=== PATIENT | female | born 1970 | race African-American/Black ===

== ENCOUNTER 2020-04-12 17:38 | Emergency (ER) | payer OTHER, SELFPAY ==
[2020-04-12 17:48] VITALS: BP 157/100; PULSE 89; RESP 18; TEMP 36.7; O2SAT 100
--- NOTE | 2020-04-12 18:05 | PC.NURSE ---
inpatient auditor consulted with poison control.
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
== END 2020-04-12 18:40 | disposition home or self-care (01) ==
PROVIDERS: Emergency Provider Nurse Practitioner; PCP Family Medicine
DX: T21.51XA Corrosion of first degree of chest wall, initial encounter (principal); J45.909 Unspecified asthma, uncomplicated
CPT/HCPCS: 16000; 99213; A9270; G0463

== ENCOUNTER 2020-07-30 11:28 | Emergency (ER) | payer OTHER, SELFPAY ==
[2020-07-30 11:49] VITALS: BP 153/90; PULSE 82; RESP 16; TEMP 36.4; O2SAT 100
--- NOTE | 2020-07-30 11:58 | ED.GENADULT ---
HPI - General Adult General Chief complaint: Unspecified Stated complaint: elevated hpb/headache Time Seen by Provider: 07/30/20 11:58 Source: patient and RN notes reviewed Mode of arrival: ambulatory Limitations: no limitations History of Present Illness HPI narrative: 49-year-old female presents with multiple concerns. Patient she reports yesterday at work she felt a headache and saw black spots and checked her blood pressure, her blood pressure was 190/120. Reports she rested and felt better. Reports she still has a minor headache today. 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 She reports taking 2 extra strength Tylenol for hip pain and headache with no relief. She denies any head trauma, thunderclap headache, slurred speech, difficulty swallowing, weakness in extremity. She denies hip injury or trauma. She denies any previous diagnosis of hypertension, reports she tried to get an appointment with her primary care provider but could not get an appointment until September. She denies chest pain, nausea, vomiting. MD complaint: High blood pressure Related Data Home Medications Medication Instructions Recorded Confirmed No Home Medications 07/30/20 07/30/20 Allergies Allergy/AdvReac Type Severity Reaction Status Date / Time No Known Allergies Allergy Unverified 07/30/20 11:31 Review of Systems Review of Systems: Narrative: CONSTITUTIONAL: Denies malaise, chills, sweats, or fever. EYES: Denies visual changes CARDIOVASCULAR: Denies chest pain, palpitations, or edema. RESPIRATORY: Denies cough or dyspnea. GASTROINTESTINAL: Denies abdominal pain, nausea, vomiting SKIN: Denies bruising, redness MUSCULOSKELETAL: Reports left hip pain NEUROLOGIC: Denies numbness, weakness. Reports mild headache. All systems reviewed & are unremarkable except as noted in HPI and below PMFSH Past Medical History Medical History (Updated 07/30/20 @ 12:06 by Ines Velasquez NP) Asthma Chronic bronchitis Comments At time of signature, agree with nursing past medical, surgical, social and family history. There is no relevant family history pertinent to the presenting complaint Exam Narrative: Exam Narrative: GENERAL: Well-appearing, well-nourished, and in no acute distress. HEAD: Normocephalic, atraumatic. EYES: PERRLA, conjunctivae clear, and EOMI. No nystagmus. ENT: Mucous membranes moist. NECK: Supple CHEST: No respiratory distress. Clear to auscultation. No bony deformities, no asymmetry. Speaks in full sentences. HEART: Regular rate and rhythm. No murmur heard. Normal peripheral pulses. EXTREMITIES: Normal range of motion. No edema. Normal strength and sensation. SKIN: Warm, dry, no rash. NEURO: Alert and oriented x3. No focal deficits. PSYCH: Normal mood and affect Course Course Emergency Course: Patient is aware of diagnosis, understands and agrees to treatment plan. Anticipatory guidance given. Patient agrees to follow-up as directed and is aware of reasons to seek care at the emergency department. Portions of this record may have been created with voice recognition software Vital Signs Vital signs: Vital Signs Temperature 97.6 F 07/30/20 11:49 Pulse Rate 82 07/30/20 11:49 Respiratory Rate 16 07/30/20 11:49 Blood Pressure 153/90 H 07/30/20 11:49 Pulse Oximetry 100 07/30/20 11:49 Temperature 97.6 F 07/30/20 11:49 Pulse Rate 82 07/30/20 11:49 Respiratory Rate 16 07/30/20 11:49 Blood Pressure 153/90 H 07/30/20 11:49 Pulse Oximetry 100 07/30/20 11:49 Reviewed. Patient has been instructed to follow up with her primary care provider within the next week regarding her elevated blood pressure today. Medical Decision Making Vital Signs Vital Signs: Vital Signs Temperature 97.6 F 07/30/20 11:49 Pulse Rate 82 07/30/20 11:49 Respiratory Rate 16 07/30/20 11:49 Blood Pressure 153/90 H 07/30/20 11:49 Pulse Oximetry 100 07/30/20 11:4
== END 2020-07-30 12:10 | disposition home or self-care (01) ==
PROVIDERS: Emergency Provider Nurse Practitioner; PCP Family Medicine
DX: R51.9 Headache, unspecified (principal); M25.552 Pain in left hip; J45.909 Unspecified asthma, uncomplicated
CPT/HCPCS: 99213; G0463

== ENCOUNTER 2020-08-04 06:41 | Emergency (ER) | payer OTHER, SELFPAY ==
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
[2020-08-04 06:47] VITALS: BP 191/124; PULSE 87; RESP 22; TEMP 36.4; O2SAT 100
[2020-08-04 06:54] VITALS: BP 184/142; PULSE 77; RESP 17; TEMP 36.7; O2SAT 98
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
[2020-08-04 07:30] VITALS: BP 188/101; PULSE 80; RESP 20; O2SAT 99
[2020-08-04] MEDS: cloNIDine HCL 0.2 MG TABLET PO (07:39)
[2020-08-04] MEDS: CYCLOBENZAPRINE HCL 10 MG TABLET PO (07:39)
[2020-08-04 08:07] VITALS: BP 169/90; PULSE 76; RESP 20; O2SAT 99
[2020-08-04 08:28] LABS: Basophils Absolute Auto 0.1 K/mm3 (0.0-0.1); Basophils Percent Auto 0.6 % (0.2-1.2); Eosinophils Absolute Auto 0.3 K/mm3 (0-0.3); Eosinophils Percent Auto 2.4 % (0-4.4); Hematocrit 41.4 % (37.0-47.0); Hemoglobin 13.2 g/dL (12.0-15.0); Immature Granulocyte Absolute 0.07 K/mm3 (0.00-0.031); Immature Granulocyte Percent A 0.7 % (0-0.5); Lymphocytes Absolute Auto 4.82 K/mm3 (0.9-3.2); Lymphocytes Percent Auto 45.8 % (18.3-44.2); Mean Corpuscular HGB Conc 31.9 g/dl (32-36); Mean Corpuscular Hemoglobin 28.6 pg (26-34); Mean Corpuscular Volume 89.8 fl (80-100); Mean Platelet Volume 9.8 fl (7.4-10.4); Monocytes Absolute Auto 0.7 K/mm3 (0.1-0.6); Monocytes Percent Auto 6.9 % (2.6-8.5); Neutrophils Absolute Auto 4.6 K/mm3 (1.3-6.7); Neutrophils Percent Auto 43.6 % (45.5-73.1); Platelet Count Result 310 k/mm3 (150-375); Red Blood Count 4.61 M/mm3 (4.2-5.4); Red Cell Distribution Width 12.7 % (11.5-14.5); White Blood Count 10.5 K/mm3 (4.5-10.0)
--- NOTE | 2020-08-04 08:30 | PC.NURSE ---
PT STATES UNABLE TO VOID AT THIS TIME
[2020-08-04 08:44] LABS: Anion Gap 3 mmol/L (8-16); Blood Urea Nitrogen 30 mg/dL (7-17); Calcium 10.2 mg/dL (8.4-10.2); Carbon Dioxide 35 mmol/L (22-30); Chloride 100 mmol/L (98-107); Estimated Glomerular Filt Rate 48; Glucose 111 mg/dL (65-105); Sodium 138 mmol/L (137-145)
[2020-08-04 09:06] VITALS: BP 124/94; PULSE 72; RESP 20; O2SAT 99
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
[2020-08-04 10:16] VITALS: BP 128/91; PULSE 75; RESP 20; O2SAT 99
== END 2020-08-04 10:30 | disposition home or self-care (01) ==
PROVIDERS: Emergency Provider Family Medicine; PCP Family Medicine
DX: S39.92XA Unspecified injury of lower back, initial encounter (principal); I10 Essential (primary) hypertension; J45.909 Unspecified asthma, uncomplicated; M47.816 Spondylosis without myelopathy or radiculopathy, lumbar region; V49.9XXA Car occupant (driver) (passenger) injured in unspecified traffic accident, initial encounter
CPT/HCPCS: 36415; 72100; 80048; 85025; 99283; A9270

== ENCOUNTER 2021-01-07 16:06 | Emergency (ER) | payer OTHER, SELFPAY ==
[2021-01-07 16:16] VITALS: BP 147/82; PULSE 92; RESP 16; TEMP 36.1; O2SAT 98
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
== END 2021-01-07 17:13 | disposition home or self-care (01) ==
PROVIDERS: Emergency Provider Nurse Practitioner Family; PCP Family Medicine
DX: G89.29 Other chronic pain (principal); M54.5 Low back pain; J45.909 Unspecified asthma, uncomplicated
CPT/HCPCS: 99213; G0463

== ENCOUNTER 2021-05-04 12:11 | Emergency (ER) | payer OTHER, SELFPAY ==
--- NOTE | ~2021-05-04 | XR_ITS ---
EXAMINATION: XR chest 2V EXAM DATE: 05/04/2021 14:36 INDICATION: Cough, chest pain, exposure to COVID . TECHNIQUE: Frontal and lateral projections of the chest obtained and reviewed. There is no prior kera dy for comparison. FINDINGS: There is right lower lung zone granuloma. The lungs are otherwise clear. There are no ple ural effusions. The cardiomediastinal silhouette is within normal limits. There is no pneumothorax suspected. The bones and soft tissues are unremarkable. IMPRESSION: No acute cardiopulmonary findings. Reviewed, dictated and finalized at location A. E FASTENERS INSPECTOR
[2021-05-04 12:18] VITALS: BP 162/106; PULSE 82; RESP 16; TEMP 37.2; O2SAT 99
--- NOTE | 2021-05-04 14:10 | ECG_ITS ---
Measurements Intervals [place] Rate: 91 P: 52 LA: 139 QRS: 31 QRSD: 90 T: 55 QT: 360 QTc: 445 Interpretive Statements SINUS RHYTHM NORMAL ECG Electronically Signed On 05-04-2021 16:37:44 TECHNICAL SERVICES ANALYST by Jian Sibley D.O.
--- NOTE | 2021-05-04 14:13 | ED.GENADULT ---
HPI - General Adult General Chief complaint: Psychiatric Symptoms Stated complaint: si Time Seen by Provider: 05/04/21 13:10 Source: patient Mode of arrival: ambulatory Limitations: no limitations History of Present Illness HPI narrative: Patient presents for evaluation of suicidal thoughts with active plan to stab her self of the chest and take off her blood pressure medication. She states she has felt depressed and suicidal for awhile however her symptoms worsened today when she was sitting in the park. Patient reports auditory hallucinations telling her that she is worthless and she should kill herself. She states that sometimes her text messages that told her that she is a worthless mother because she uses crack cocaine. She states she last used crack cocaine last evening. She does consume alcohol but she does not feel that is contributory to her suicidal thoughts. She contacted her sister today who advised she come here for further evaluation. She reports chest pain that started while she was here in the Department. She states pain is intermittent. She cannot provide me with a descriptive quality or numerical rating to the pain. She has a productive cough of yellow sputum. She denies shortness of breath. She states that to her family members tested positive for Covid this week. No history of Covid. She has not been vaccinated for COVID. She does smoke 1 ppd. She states she is currently homeless and bounces around to different family members' homes. Related Data Home Medications Medication Instructions Recorded Confirmed hydrochlorothiazide DAILY 08/04/20 potassium bicarb and chloride packet PO 08/04/20 promethazine-codeine ml 08/04/20 Allergies Allergy/AdvReac Type Severity Reaction Status Date / Time No Known Allergies Allergy Verified 05/04/21 12:27 Review of Systems Review of Systems: CONSTITUTIONAL: Denies fever, chills, or sweats. EYES: Denies visual changes, redness, or discharge. ENT: Denies rhinorrhea, congestion, sore throat, or otalgia. CARDIOVASCULAR: Reports chest pain. Denies palpitations, or edema. RESPIRATORY: Reports cough. Denies dyspnea GASTROINTESTINAL: Denies abdominal pain, nausea, vomiting, or diarrhea. GENITOURINARY: Denies dysuria or hematuria. SKIN: Denies rash or itching. MUSCULOSKELETAL: Denies back pain, joint pain, or myalgia. NEUROLOGIC: Denies headache, numbness, dizziness, or weakness. PSYCHIATRIC: Reports anxiety, depression, auditory hallucinations telling her to kill herself, suicidal thoughts with active plan. Denies visual hallucinations and homicidal ideation [facility] Past Medical History Medical History (Updated 05/04/21 @ 22:04 by MARTIN TroyP, ) Anxiety Asthma Chronic bronchitis Depression Hypertension Surgical History Surgical History No pertinent past surgical history Family History Family History Mother COVID Social History Social History Smoking packs per day: 1 Smoking cigarettes per day: 20.0 Smoking status: Current every day smoker Substance use: current Substance use type: crack/cocaine Additional living arrangements comments: homeless Gender identity (if verbalized by the patient): Female Spiritual care concerns: No Exam Narrative: GENERAL: Well-appearing, well-nourished, and in no acute distress. HEAD: Normocephalic, atraumatic. EYES: PERRLA and EOMI. ENT: Nares clear, no rhinorrhea or epistaxis. Mucous membranes moist. Oropharynx without tonsillar hypertrophy exudate or other lesions. Bilateral TMs pearly allison nonbulging NECK: Supple. No adenopathy or masses. No carotid bruits or JVD CHEST: Clear to auscultation. No respiratory distress. No wheezes rales or rhonchi HEART: Regular rate and rhythm. No murmur heard. Edith
[2021-05-04 14:49] LABS: Basophils Percent Auto 0.6 % (0.2-1.2); Eosinophils Absolute Auto 0.1 K/mm3 (0-0.3); Eosinophils Percent Auto 1.1 % (0-4.4); Hematocrit 41.7 % (37.0-47.0); Hemoglobin 13.4 g/dL (12.0-15.0); Immature Granulocyte Absolute 0.03 K/mm3 (0.00-0.031); Immature Granulocyte Percent A 0.5 % (0-0.5); Lymphocytes Absolute Auto 2.08 K/mm3 (0.9-3.2); Lymphocytes Percent Auto 33.2 % (18.3-44.2); Mean Corpuscular HGB Conc 32.1 g/dl (32-36); Mean Corpuscular Volume 90.3 fl (80-100); Mean Platelet Volume 9.7 fl (7.4-10.4); Monocytes Absolute Auto 0.9 K/mm3 (0.1-0.6); Neutrophils Absolute Auto 3.1 K/mm3 (1.3-6.7); Neutrophils Percent Auto 49.6 % (45.5-73.1); Platelet Count Result 270 k/mm3 (150-375); Red Blood Count 4.62 M/mm3 (4.2-5.4); Red Cell Distribution Width 12.8 % (11.5-14.5); White Blood Count 6.3 K/mm3 (4.5-10.0)
[2021-05-04 14:55] LABS: Add Urine Microscopic? YES; Appearance Urine Turbid (Clear); Bilirubin Urine Negative (Negative); Blood Urine 2+ (Negative); Color Urine Yellow (Yellow); Glucose Urine UA Negative (Negative); Ketones Urine Negative (Negative); Leukocyte Esterase Ur 2+ LEU/UL (Negative); Mucus Urine Heavy /lpf; Nitrate Urine Negative (Negative); Protein Urine 1+ mg/dL (Negative); RBC Urine 51-75 /hpf (0-2); Specific Grav Ur 1.025 (1.001-1.035); Squamous Epithelial Cell Urine Many /hpf (Few); Urobilinogen Urine Negative mg/dL (<2.0)
[2021-05-04 15:00] LABS: Alanine Aminotransferase 27 U/L (4-35); Albumin Level 4.4 g/dL (3.5-5.1); Alkaline Phosphatase 72 U/L (38-126); Anion Gap 5 mmol/L (8-16); Aspartate Amino Transferase 31 U/L (14-36); Bilirubin,Total 0.6 mg/dL (0.2-1.3); Blood Urea Nitrogen 15 mg/dL (7-17); Calcium 9.6 mg/dL (8.4-10.2); Carbon Dioxide 30 mmol/L (22-30); Chloride 100 mmol/L (98-107); Estimated CRCL calculation 69 ml/min; Estimated Glomerular Filt Rate > 60; Glucose 103 mg/dL (65-110); Potassium 3.6 mmol/L (3.4-5.0); Sodium 135 mmol/L (137-145)
[2021-05-04 15:03] LABS: Acetaminophen < 10 ug/mL (10-30); Ethanol < 10 mg/dL (<10); Salicylate < 1.0 mg/dL (2-20)
[2021-05-04 15:11] LABS: Troponin I < 0.012 ng/mL (0.000-0.034)
[2021-05-04 15:17] LABS: Amphetamine Screen Urine Negative (Negative); Barbiturate Screen Urine Negative (Negative); Benzodiazepines Screen Urine Negative (Negative); Cannabinoid Screen Urine Negative (Negative); Cocaine Screen Urine Positive (Negative); Methadone Screen Urine Negative (Negative); Opiate Screen Urine Negative (Negative); Phencyclidine Screen Urine Negative (Negative)
[2021-05-04 15:30] LABS: Thyroid Stimulating Hormone 0.318 uIU/mL (0.465-4.680)
[2021-05-04 16:01] LABS: EDCOVIDSCREEN Positive (Negative)
[2021-05-04 18:10] LABS: Troponin I < 0.012 ng/mL (0.000-0.034)
[2021-05-04 19:00] VITALS: BP 150/85; PULSE 101; RESP 18; TEMP 37.3; O2SAT 99
--- NOTE | 2021-05-04 19:00 | PC.NURSE ---
Assuming pt at this time
--- NOTE | 2021-05-04 22:21 | PC.NURSE ---
Per pt request Rn attempted to call pt's sister with no success.
[2021-05-05 00:13] VITALS: BP 146/81; PULSE 88; RESP 18; TEMP 37.7; O2SAT 96
[2021-05-05] MEDS: ACETAMINOPHEN 500 MG TABLET 1000 MG PO ×3 (03:26→21:11)
[2021-05-05 05:41] VITALS: BP 117/75; PULSE 71; RESP 15; O2SAT 99
[2021-05-05 08:55] VITALS: BP 146/100; PULSE 79; RESP 18; O2SAT 99
--- NOTE | 2021-05-05 08:57 | PC.NURSE ---
Pt provided sisters'(Espinoza Britton) phone number [phone] to give her an update
--- NOTE | 2021-05-05 09:00 | PC.NURSE ---
Ordered pt breakfast precautions tray
--- NOTE | 2021-05-05 10:00 | PC.NURSE ---
Attempted to call sister no response
[2021-05-05 12:24] VITALS: BP 120/91; PULSE 86; RESP 18; O2SAT 100
--- NOTE | 2021-05-05 12:32 | PC.NURSE ---
ordered pt lunch tray at this time
[2021-05-05] MEDS: IBUPROFEN 400 MG TABLET 800 MG PO (13:41)
[2021-05-05 16:00] VITALS: BP 147/89; PULSE 80; RESP 18; O2SAT 99
--- NOTE | 2021-05-05 19:25 | PC.NURSE ---
pt given some supplies to wash up in the sink at this time
[2021-05-05 21:12] VITALS: BP 148/89; PULSE 66; RESP 18; O2SAT 100
--- NOTE | 2021-05-06 07:15 | PC.NURSE ---
report from kaylah melchor. pt standing at counter eating breakfast tray. no distress noted.
[2021-05-06] MEDS: NICOTINE (*PBKC) 21 MG PATCH 1 PATCH TRANSDERM (09:06)
[2021-05-06] MEDS: ACETAMINOPHEN 500 MG TABLET 1000 MG PO (09:06)
--- NOTE | 2021-05-06 09:06 | PC.NURSE ---
tylenol given for c/o low back pain and nicotine patch placed to left upper arm for cigarette cravings. pt denies other needs at this time.
[2021-05-06 10:39] VITALS: BP 138/96; PULSE 75; RESP 16; O2SAT 100
--- NOTE | 2021-05-06 11:38 | PC.NURSE ---
pt escorted to lobby by security since pt unwilling to walk there herself. voices displeasure that she is being discharged since she has covid. no respiratory distress noted. pt talking on phone/tablet.
== END 2021-05-06 11:38 | disposition home or self-care (01) ==
PROVIDERS: Emergency Provider Nurse Practitioner; PCP Family Medicine
DX: F32.A Depression, unspecified (principal); U07.1 COVID-19; F14.10 Cocaine abuse, uncomplicated; I10 Essential (primary) hypertension; J44.9 Chronic obstructive pulmonary disease, unspecified; F41.9 Anxiety disorder, unspecified; F17.210 Nicotine dependence, cigarettes, uncomplicated
CPT/HCPCS: 36415; 71046; 80053; 80307; 81001; 81025; 84443; 84484; 85025; 87086; 87088; 87426; 93005; 99284; A9270; C9803

== ENCOUNTER 2024-01-31 11:21 | Emergency (ER) | payer OTHER, MEDICAID, SELFPAY ==
--- NOTE | ~2024-01-31 | XR_ITS ---
Left Knee Technique: AP, lateral, and sunrise views were obtained. Clinical History: Pain Findings: No fracture or dislocation is seen. Osseous alignment is anatomic. There is minimal degener ative change of the medial and patellofemoral compartments. Soft tissues are unremarkable. No joint e ffusion is seen. Impression: Minimal degenerative change, as above. Reviewed, dictated and finalized at location . Impression: Minimal degenerative change, as above.
[2024-01-31 11:42] VITALS: BP 163/112; PULSE 85; RESP 20; TEMP 36.6; O2SAT 100
--- NOTE | 2024-01-31 11:43 | ED.EXTPRO ---
HPI - Extremity Problem General Chief complaint: Extremity Problem,Nontraumatic Stated complaint: Both Knee Pain Time Seen by Provider: 01/31/24 11:44 Source: patient and RN notes reviewed Mode of arrival: ambulatory Limitations: no limitations History of Present Illness HPI Narrative: 53-year-old female presents with concern for bilateral knee pain, worse on the left. Reports she saw her primary care for this to gave her cortisone injections, she had a cortisone injection 2 months ago. She reports her pain is been worse since the cortisone injection and shoots up her thigh. She reports pain is constant, worse with weight-bearing, bending, extending. Reports she tried to wrap it without relief. Reports she has been taking her friend's muscle relaxers. Reports she has taken diclofenac and meloxicam without relief. MD Complaint: extremity pain Related Data Home Medications Medication Instructions Recorded Confirmed hydrochlorothiazide 25 mg tablet 25 mg PO DAILY 08/04/20 01/31/24 Allergies Allergy/AdvReac Type Severity Reaction Status Date / Time No Known Allergies Allergy Verified 01/31/24 11:40 Review of Systems Review of Systems: CONSTITUTIONAL: Denies malaise, chills, sweats, or fever. SKIN: Denies rash or itching, open skin, laceration, abrasion, redness, warmth, swelling. MUSCULOSKELETAL: Reports bilateral knee pain, worse on the left NEUROLOGIC: Denies numbness, weakness All systems reviewed & are unremarkable except as noted in HPI and below PMFSH Past Medical History Medical History (Updated 01/31/24 @ 12:10 by Ines Velasquez NP) Anxiety Asthma Chronic bronchitis Depression Hypertension Surgical History Surgical History No pertinent past surgical history Family History Family History Mother COVID Social History Social History Smoking packs per day: 1 Smoking cigarettes per day: 20.0 Smoking status: Current every day smoker Substance use: current Substance use type: crack/cocaine Additional living arrangements comments: homeless Gender identity (if verbalized by the patient): Female Spiritual care concerns: No Comments At time of signature, agree with nursing past medical, surgical, social and family history. There is no relevant family history pertinent to the presenting complaint Exam Narrative: GENERAL: Well-appearing, well-nourished, and in no acute distress. HEAD: Normocephalic, atraumatic. EYES: PERRLA, conjunctivae clear NECK: Supple. CHEST: Speaks in full sentences. No respiratory distress. HEART: Regular rate and rhythm. Normal and equal peripheral pulses. EXTREMITIES: [Xxx] has normal strength and sensation, normal range of motion. No edema or ecchymosis. 5/5 strength with [xxx] flexion and extension. Normal sensation with sensitivity to light touch and pain. No point tenderness. No open wounds, no skin tenting, no devitalized tissue or atrophy, no trophic changes, no obvious deformity, alignment normal, nearby joints and structures intact. Distal pulses palpable and equal bilaterally, skin warm, dry, pink. Capillary refill less than 3 seconds. SKIN: Warm, dry, no rash. NEURO: Alert and oriented x3. PSYCH: Normal mood and affect Course Course Emergency Course: Patient is aware of diagnosis, understands and agrees to treatment plan. Anticipatory guidance given. Patient agrees to follow-up as directed and is aware of reasons to seek care at the emergency department. Portions of this record may have been created with voice recognition software Level of Care: Express Care Visit Vital Signs Vital signs: Vital Signs Temperature 97.9 F 01/31/24 11:42 Pulse Rate 85 01/31/24 11:42 Respiratory Rate 20 01/31/24 11:42 Blood Pressure 163/112 H 01/31/24 11:42 Pul
== END 2024-01-31 12:33 | disposition home or self-care (01) ==
PROVIDERS: Emergency Provider Nurse Practitioner
DX: M25.562 Pain in left knee (principal); J45.909 Unspecified asthma, uncomplicated; I10 Essential (primary) hypertension
CPT/HCPCS: 73564; 99213; G0463